=== PATIENT | male | born 1980 | race Caucasian/White ===

== ENCOUNTER 2019-02-20 23:27 | Observation (INO) | payer OTHER ==
--- NOTE | 2019-02-21 00:30 | ED Physician Documentation ---
History of Present Illness - Stated complaint Stated Complaint: EYE SWELLING/REDNESS - Chief complaint Chief Complaint: Wound - History obtained from History obtained from: Patient - History of Present Illness Timing: How many weeks ago (1) Pain level now: 4 Improved by: nothing Worsened by: no causative or exacerbating factors Associated symptoms: rash, swelling, tenderness - Additonal information Additional information: patient complains of approximately one week of redness and swelling that started midline forehead. There was no injury to this area, nor was there any other apparent causative or inciting incident. He denies history of similar symptoms. He was able to see his industrial waste inspector at the beginning of the week, on Saturday, and was prescribed topical mupirocin and PO Bactrim. He returned to the industrial waste inspector on , as the area of redness and swelling had spread, and at that time the industrial waste inspector performed an incision and drainage, placed packing into the wound, and added doxycycline to the patients antibiotic regimen. The patient returned again on Saturday due to ongoing spread of the area affected. Tonight he came to the emergency department because the area of redness, swelling, and tenderness has continued to spread even further. Review of Systems Constitutional: reports: Reviewed and negative Eyes: reports: Reviewed and negative Skin: reports: Rash, Lesions Musculoskeletal: reports: Reviewed and negative Neurologic: reports: Reviewed and negative PD PAST MEDICAL HISTORY - Past Medical History Past Medical History: No Cardiovascular: None Respiratory: None Neuro: None Endocrine/Autoimmune: None GI: None : None HEENT: None Psych: Depression Musculoskeletal: Osteoarthritis Derm: None - Past Surgical History Past Surgical History: No - Present Medications Home Medications: Ambulatory Orders Medication Instructions Recorded Confirmed Trazodone HCl 50 mg PO QPM 02/21/19 02/21/19 Acetaminophen/Cod 300/30 [Tylenol 1 tab PO Q6HR PRN #10 tablet 02/22/19 #3] Ciprofloxacin HCl [Cipro] 500 mg PO DAILY #5 tablet 02/22/19 Clindamycin HCl [Clindamycin 300MG 300 mg PO BID #10 capsule 02/22/19 CAP] Ibuprofen [Motrin] 600 mg PO Q6HR PRN #20 tablet 02/22/19 - Allergies Allergies/Adverse Reactions: Allergies Allergy/AdvReac Type Severity Reaction Status Date / Time Penicillins Allergy Unknown Verified 02/21/19 00:19 - Social History Does the pt smoke?: No Smoking Status: Never smoker Does the pt drink ETOH?: No Does the pt have substance abuse?: No - Immunizations Immunizations are current?: Yes - POLST Patient has POLST: No PD ED PE NORMAL - Vitals Vital signs reviewed: Yes - General General: Alert and oriented X 3, No acute distress, Well developed/nourished - HEENT HEENT: PERRL, EOMI, Moist mucous membranes - Neck Neck: Supple, no meningeal sign - Cardiac Cardiac: RRR, No murmur - Respiratory Respiratory: No respiratory distress, Clear bilaterally PD ED PE EXPANDED - HEENT HEENT Visual: 1 - rash (confluent erythema, raised, with tenderness but no fluctuance. there is a central 2cm diameter area , midline of forehead, with darker erythema and packing in place through small incision site. the mechanical technical service specialist erythema also involves nasal bridge and fainter erythema with poor margins noted right infraorbital region) Results - Vitals Vitals: Oxygen O2 Source Room air - Labs Labs: Laboratory Tests 02/21/19 02/21/19 00:53 00:53 WBC 5.6 RBC 4.84 Hgb 15.3 Hct 46.4 MCV 95.9 H MCH 31.6 H MCHC 33.0 RDW 12.8 Plt Count 227 MPV 9.5 Neut # (Auto) 2.9 Lymph # (Auto) 1.8 Mcduffie # (Auto) 0.7 Eos # (Auto) 0.2 Baso # (Auto) 0.0 Absolute Nucleated RBC 0.00 Nucleated RBC % 0.0 Sodium 140 Potassium 4.0 Chloride 106 Carbon Dioxide 24 Anion Gap 10.0 BUN 15 Creatinine 1.1 Estimated GFR (MDRD) 75 L Glucose 104 H Calcium 9.1 - Rads (name of study) CT facial bones with soft tissue reconstruct Radiology: Prelim report reviewed, See rad report PD MEDICAL DECISION MAKING - ED course Complexity details: reviewed results, re-evaluated patient, considered differential, d/w patient ED course: reassuring blood tests and afebrile, and CT does not demonstrate any drainable collections. despite this, observation is certainly indicated for more aggressive treatment (IV abx) for his facial cellulitis that is worsening despite over 48 hours of two antibiotics and topical mupirocin Departure - Departure Disposition: ED Place in Observation Clinical Impression: Facial cellulitis Condition: Fair Discharge Date/Time: 02/21/19 03:52
[2019-02-21] MEDS ORDERED: ACETAMINOPHEN/CODEINE 300 MG/30 MG TABLET PO STA (00:43)
[2019-02-21] MEDS ORDERED: CLINDAMYCIN 600 MG/50 ML 50 ML IV STA (00:49)
[2019-02-21] MEDS ORDERED: CIPROFLOXACIN 400 MG/200 ML 200 ML IV ONE (00:50)
[2019-02-21 01:04] LABS: BASOPHILS % (AUTO) 0.5 %; EOSINOPHILS # (AUTO) 0.2 10^3/uL (0.0-0.7); EOSINOPHILS % (AUTO) 3.8 %; HGB - HEMOGLOBIN 15.3 g/dL (14.0-18.0); LYMPHOCYTES # (AUTO) 1.8 10^3/uL (1.5-3.5); LYMPHOCYTES % (AUTO) 31.7 %; MEAN CORPUSCULAR HEMOGLOBIN 31.6 pg (27.0-31.0); MEAN CORPUSCULAR VOLUME 95.9 fL (80.0-94.0); MEAN PLATELET VOLUME 9.5 fL (7.4-11.4); MONOCYTES # (AUTO) 0.7 10^3/uL (0.0-1.0); MONOCYTES % (AUTO) 11.7 %; NEUTROPHILS # (AUTO) 2.9 10^3/uL (1.5-6.6); NEUTROPHILS % (AUTO) 51.9 %; PLT - PLATELET COUNT 227 10^3/uL (130-450); RED BLOOD COUNT 4.84 10^6/uL (4.70-6.10); RED CELL DISTRIBUTION WIDTH 12.8 % (12.0-15.0); WHITE BLOOD COUNT 5.6 x10^3/uL (4.8-10.8)
[2019-02-21 01:12] LABS: CALCIUM 9.1 mg/dL (8.5-10.3); CREATININE 1.1 mg/dL (0.6-1.2)
[2019-02-21] MEDS ORDERED: IOVERSOL 320 100 ML VIAL IVP ONE ×2 (01:34→01:52)
[2019-02-21] MEDS ORDERED: SODIUM CHLORIDE 0.9% 1,000 ML IV ONE (01:41)
--- NOTE | 2019-02-21 02:03 | CT Report ---
Reason: facial cellulitis Procedure Date: 02/21/2019 Accession Number: [id number] / [id number] Procedure: CT - MAXILLOFACIAL W CPT Code: FULL RESULT: EXAM: CT MAXILLOFACIAL WITH CONTRAST EXAM DATE: 02/21/2019 01:48 AM. CLINICAL HISTORY: Facial cellulitis. COMPARISONS: None. TECHNIQUE: Thin-section axial images were acquired of the face after administration of intravenous contrast. Post-processing: Coronal and sagittal reformats. Other: None. IV contrast: 100 ML OPTIRAY 320. In accordance with CT protocol optimization, one or more of the following dose reduction techniques were utilized for this exam: automated exposure control, adjustment of mA and/or KV based on patient size, or use of iterative reconstructive technique. FINDINGS: Soft Tissue: Prominent edema with ulceration of the anterior frontal supraorbital region. Superficial nasal edema. No abscess. No soft tissue mass. There are scattered small bilateral upper cervical lymph nodes. No pathologically enlarged lymph nodes by size criteria. Orbits: Symmetric and unremarkable. Bones: No fracture or bone lesion. Temporomandibular Joints: The temporomandibular joints are symmetric and normally located. Sinuses: Normal. No mucosal thickening or fluid levels. Glands: The parotid and submandibular glands are unremarkable. Other: None. IMPRESSION: Nasal and frontal scalp cellulitis. RADIA
[2019-02-21] MEDS ORDERED: SODIUM CHLORIDE FLUSH 0.9% 10 ML SYRINGE IVP PRN (03:12)
--- NOTE | 2019-02-21 03:33 | HISTORY & PHYSICAL EXAMINATION ---
Chief Complaint - Chief Complaint Chief Complaint: Facial redness History of Present Illness - Admitted From Admitted From:: Home - History Obtained From Records Reviewed: Yes History obtained from: Patient, ER Physician - History of Present Illness HPI Comment/Other: This is a 38 year old male with a past medical history significant for depression and NIR (on CPAP) who presents from home complaining of worsening facial redness. He states this all began one week ago when he scratched his left eye as it was red. He then developed a rash over his forehead that became more erythematous. He saw an boiler tester last saturday for his irritated eye and no significant abnormalities were noted. He then saw a metal flow coordinator for the redness over his forehead and he was prescribed Bactrim. He did not improve and saw the Office Systems Technology Instructor again mid week who performed an I&D with a small amount of purulent discharge expressed. Doxycycline was added in addition to the Bactrim. He saw the Office Systems Technology Instructor again Saturday afternoon where the wound was packed again. He was asked to follow up again on Saturday for monitoring of the wound. He decided to go to the ER late Saturday evening as the the erythema began to progress to his nose. He reports no fevers or chills. He has had headaches that began this past Saturday. He reports no prior history of cellulitis. He does have left eye pain but reports no pain with eye movement or blurry vision. His left eye remains red and he is taking eye drops. In the ER, he underwent CT of the facial bones which was consistent with scalp and nasal cellulitis. He will be admitted for further management of cellulitis as he failed outpatient antibiotics. History - Past Medical History Cardiovascular: reports: None Respiratory: reports: Sleep apnea, CPAP use Neuro: reports: None Endocrine/Autoimmune: reports: None GI: reports: None : reports: None HEENT: reports: None Psych: reports: Depression Musculoskeletal: reports: Osteoarthritis Derm: reports: None MRSA Hx?: No - Family & Social History Family History: Sister: Cancer (Colon) Family History Comment/Other: He has a a strong family history of colon cancer in the females on his paternal side including twin sister. Living arrangement: At home Living Situation: With family Social History Notes: He has lived on [facility] since [address]. Lives with his and two children. 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 Does not smoke but does drink alcohol socially. - Substance History Use: Uses substance without health or social issues: Alcohol - POLST Patient has POLST: No Meds/Allgy - Home Medications Home Medications: Ambulatory Orders Medication Instructions Recorded Confirmed traZODone [Desyrel] 50 mg PO DAILY 02/21/19 02/21/19 - Allergies Allergies/Adverse Reactions: Allergies Allergy/AdvReac Type Severity Reaction Status Date / Time Penicillins Allergy Unknown Verified 02/21/19 00:19 Review of Systems - Constitutional Constitutional: denies: Fever, Chills, Poor appetite - Eyes Eyes: reports: Pain. denies: Blurred vision, Field loss, Vision loss - Cardiovascular Cariovascular: denies: Chest pain - Respiratory Respiratory: denies: SOB at rest, SOB with exertion - Gastrointestinal Gastrointestinal: denies: Abdominal pain, Nausea, Vomiting - Genitourinary Genitourinary: denies: Dysuria, Frequency, Urgency - Musculoskeletal Musculoskeletal: reports: Back pain. denies: Muscle pain - Integumentary Integumentary: reports: Other (Erythema of the forehead). denies: Rash - Neurological Neurological: denies: General weakness, Focal weakness - Hematologic/Lymphatic Hematologic/Lymphatic: denies: Recurrent infections Prior Level of Functionality: Independent with ADL's. Exam - Vital Signs Reviewed Vital Signs: Yes Vital Signs: Vital Signs x48h Temp Pulse Resp BP Pulse Ox 02/20/19 23:55 36.9 C 58 L 16 128/91 H 99 - Physical Exam General Appearance: positive: No acute distress, Alert Eyes Bilateral: positive: PERRL, EOMI, Other (Left conjuctiva is injected. No ocular pain with movement.) ENT: positive: ENT inspection nml Neck: positive: Nml inspection Respiratory: positive: No respiratory distress, Breath sounds nml. negative: Wheezes, Rales, Rhonchi Cardiovascular: positive: Regular rate & rhythm, No murmur. negative: Tachyca rdia, Bradycardia Abdomen: positive: Non-tender, No distention. negative: Tenderness, Guarding, Rebound Skin: positive: Color nml, No rash, Warm, Other (There is a 3cm incision located over his forehead that is centrally located. There is packing noted. The area is tender to palpation and warm to touch. No fluid collection palpated. No discharged expressed. There is asscoiated erythema from anterior scalp down to the upper portion of the nose.) Extremities: positive: Full ROM, Pedal edema (Trace edema). negative: No pedal edema Neurologic/Psychiatric: positive: Oriented x3. negative: Disoriented to person, Disoriented to place, Disoriented to time Conclusion/Plan - Problem List (1) Facial cellulitis Conclusion/Plan: He has facial cellulitis that failed outpatient treatment with Bactrim and Doxcycline. He has no leukocytosis and there is no proptosis or pain with eye movements. CT of the facial bones consistent with frontal scalp and nasal cellulitis. There is edema with ulceratation of supraorbital region which is secondary to the I&D performed by Dermatology. Received IV Ciprofloxacin and Clindamycin in the ER. - Will continue IV Clindamycin and Ciprofloxacin given his penicillin allergy - Follow CBC (2) Depression Conclusion/Plan: Stable. On Trazodone. - Continue Trazodone (3) NIR (obstructive sleep apnea) Conclusion/Plan: Stable. On CPAP - Continue CPAP - Lab Results Lab results reviewed: Yes Fish Bones: 02/21/19 00:53 02/21/19 00:53 - Diagnostic Imaging Results Diagnostic Imaging Results: positive: Final report reviewed
[2019-02-21] MEDS: ACETAMINOPHEN/CODEINE 300 MG/30 MG TABLET PO PRN ×4 (05:53→19:36)
[2019-02-21] MEDS: CIPROFLOXACIN 400 MG/200 ML 200 ML IV SCH ×2 (08:44→19:36)
[2019-02-21] MEDS: SODIUM CHLORIDE FLUSH 0.9% 10 ML SYRINGE IVP SCH ×3 (08:45→19:37)
[2019-02-21] MEDS: OFLOXACIN 0.3% OPHTH DROPS LEFTEYE SCH ×4 (10:02→20:49)
[2019-02-21] MEDS: CLINDAMYCIN 600 MG/50 ML 50 ML IV SCH ×2 (11:06→17:10)
[2019-02-21] MEDS ORDERED: ACETAMINOPHEN/CODEINE 300 MG/30 MG TABLET PO PRN (17:32)
[2019-02-21] MEDS: IBUPROFEN 600 MG TABLET PO SCH (18:10)
[2019-02-21] MEDS ORDERED: traZODone 50 MG TABLET PO SCH (21:00)
[2019-02-22] MEDS: IBUPROFEN 600 MG TABLET PO SCH ×3 (00:36→11:48)
[2019-02-22] MEDS: SODIUM CHLORIDE FLUSH 0.9% 10 ML SYRINGE IVP SCH ×3 (00:38→16:37)
[2019-02-22] MEDS: CLINDAMYCIN 600 MG/50 ML 50 ML IV SCH ×3 (00:38→16:37)
[2019-02-22] MEDS: CIPROFLOXACIN 400 MG/200 ML 200 ML IV SCH (08:04)
[2019-02-22] MEDS: ACETAMINOPHEN/CODEINE 300 MG/30 MG TABLET PO PRN (08:04)
[2019-02-22] MEDS ORDERED: POLYETHYLENE GLYCOL 3350 17 GM PACKET PO SCH (09:00)
[2019-02-22] MEDS: OFLOXACIN 0.3% OPHTH DROPS LEFTEYE SCH ×3 (10:00→16:37)
--- NOTE | 2019-02-22 12:39 | Discharge Plan ---
Discharge Plan Problem Reviewed?: Yes Disposition: Home, Self Care Condition: Fair Prescriptions: Acetaminophen/Cod 300/30 [Tylenol #3] 1 tab PO Q6HR PRN #10 tablet PRN Reason: Pain Ibuprofen [Motrin] 600 mg PO Q6HR PRN #20 tablet PRN Reason: Pain Ciprofloxacin HCl [Cipro] 500 mg PO DAILY #5 tablet Clindamycin HCl [Clindamycin 300MG CAP] 300 mg PO BID #10 capsule Diet: Regular Activity Restrictions: Activity as Tolerated Shower Restrictions: No Driving Restrictions: No (Please get help driving while your eyesight is poor) Instruction Topics: Drainage Abscess Health Concerns: IV antibiotics were needed for a worsening facial infection. Plan of Treatment: Continue antibiotics (Cipro and Clinda were ordered). Continue your previously prescribed eyedrops. New pain medications were prescribed, and use cold packs if they help. Keep appointment with Dermatology on 02/23/19. The wound culture (from 02/16/19) results were not available to us because [facility] is closed on weekends. Care Goals: Return to prior good health. Assessment: The patient is agreeable with the plan. No Smoking: If you smoke, Please STOP! Call for help. Follow-up with: Richa Torres NP [Primary Care Provider] -
[2019-02-22 16:18] VITALS: BP 126/67
--- NOTE | 2019-02-26 13:55 | DISCHARGE SUMMARY ---
Discharge Summary Admit Date: 02/21/19 Discharge Date: 02/22/19 Discharging Provider: Dr Corry Vickers Primary Care Provider: Richa Torres Code Status: Attempt Resuscitation Condition at Discharge: Fair Discharge Disposition: 01 Home, Self Care - DIAGNOSES Admission Diagnoses: 1) Facial cellulitis 2) Depression 3) Hx of NIR on CPAP Discharge Diagnoses with Status of Each Condition: See below - HPI History of Present Illness: This is a 38 year old male with a past medical history significant for depression and NIR (on CPAP) who presents from home complaining of worsening facial redness. He states this all began one week ago when he scratched his left eye as it was red. He then developed a rash over his forehead that became more erythematous. He saw an transition lead last saturday for his irritated eye and no significant abnormalities were noted. He then saw a boiler installer for the redness over his forehead and he was prescribed Bactrim. He did not improve and saw the Scoop Filler again mid week who performed an I&D with a small amount of purulent discharge expressed. Doxycycline was added in addition to the Bactrim. He saw the Scoop Filler again Saturday afternoon where the wound was packed again. He was asked to follow up again on Saturday for monitoring of the wound. He decided to go to the ER late Saturday evening as the the erythema began to progress to his nose. He reports no fevers or chills. He has had headaches that began this past Saturday. He reports no prior history of cellulitis. He does have left eye pain but reports no pain with eye movement or blurry vision. His left eye remains red and he is taking eye drops. In the ER, he underwent CT of the facial bones which was consistent with scalp and nasal cellulitis. He will be placed in Observation status for further iv management of cellulitis, since he has failed outpatient antibiotics. - HOSPITAL COURSE Hospital Course: 1) Cellulitis He was started on iv Clindamycin and iv Ciprofloxacin. He got ice packs, narcotics and Motrin for pain and swelling. By the next day, he had less swelling and pain, and was discharged on several more days of these same antibiotics orally and he had a follow-up appointment to see his Scoop Filler, for packing removal and to get culture results, the very next day. We tried to get the culture results which had been sent to [facility], but could not get them because [facility] was closed on weekends (the patient was here on a Sat and Sun). 2) Depression He was kept on home meds while here 3) NIR At home he usually uses a CPAP device, which was not used here due to the location of the cellulitis - ALLERGIES Allergies/Adverse Reactions: Allergies Allergy/AdvReac Type Severity Reaction Status Date / Time Penicillins Allergy Unknown Verified 02/21/19 00:19 - MEDICATIONS Home Medications: Ambulatory Orders Medication Instructions Recorded Confirmed Trazodone HCl 50 mg PO QPM 02/21/19 02/21/19 Acetaminophen/Cod 300/30 [Tylenol 1 tab PO Q6HR PRN #10 tablet 02/22/19 #3] Ciprofloxacin HCl [Cipro] 500 mg PO DAILY #5 tablet 02/22/19 Clindamycin HCl [Clindamycin 300MG 300 mg PO BID #10 capsule 02/22/19 CAP] Ibuprofen [Motrin] 600 mg PO Q6HR PRN #20 tablet 02/22/19 - PHYSICAL EXAM AT DISCHARGE General Appearance: positive: No acute distress, Other (Dried blood in a central forehead wound, with mild surrounding swelling and redness) Eyes Bilateral: positive: Other (L eye red, and tearful) ENT: positive: ENT inspection nml Neck: positive: Nml inspection, No JVD Respiratory: positive: No respiratory distress, Breath sounds nml Cardiovascular: positive: Regular rate & rhythm, No murmur Abdomen: positive: Non-tender Skin: positive: No rash Extremities: positive: No pedal edema - LABS Result Diagrams: 02/21/19 00:53 02/21/19 00:53 - FOLLOW UP Follow Up: See Philippe STEELE tomorrow
== END 2019-02-22 18:00 | disposition home or self-care (01) ==
LOC: ED 23:27 → MS2 02-21 03:12
PROVIDERS: ADMIT Internal Medicine; ATTEND Internal Medicine
DX: L03.211 Cellulitis of face (principal); F32.9 Major depressive disorder, single episode, unspecified; G47.33 Obstructive sleep apnea (adult) (pediatric); M19.90 Unspecified osteoarthritis, unspecified site
CPT/HCPCS: 36415; 70487; 80048; 85025; 96365; 96366; 96367; 96368; 99284; 99285; A9270; G0378; Q9967; 83605